=== PATIENT | male | born 1975 | race Caucasian/White ===

== ENCOUNTER 2017-11-08 10:27 | Emergency (ER) | payer OTHER ==
[2017-11-08] MEDS ORDERED: Sodium Chloride 0.9% 10 ML Syringe FLUSH PRN (10:48)
--- NOTE | 2017-11-08 10:55 | EDM.PDOC ---
ED HPI GENERAL MEDICAL PROBLEM - General Chief Complaint: Chest Pain Stated Complaint: SOB/CHEST PAIN Time Seen by Provider: 11/08/17 10:37 Source of Information: Reports: Patient History Limitations: Reports: No Limitations - History of Present Illness INITIAL COMMENTS - FREE TEXT/NARRATIVE: The patient presents with chest pain. This started about 3 days ago. He also has some shortness of breath. This has been an ongoing problem for over 10 years. He says he is winded with working or exertion. He also has come ringing in his ears. He also has some blurred vision at times that comes and goes. He smokes heavy. He has no history of heart disease, hypercholesterolemia, or hypertension. He has been having some diarrhea and abdominal issues for weeks. The past few days that has gotten better. He has no fever, chills or cough. He also had headaches at times. Onset: Gradual Duration: Day(s): (3) Location: Reports: Chest Quality: Reports: Sharp Severity: Moderate Improves with: Reports: None Worsens with: Reports: None Associated Symptoms: Reports: Chest Pain, Headaches, Shortness of Breath. Denies: Cough, Fever/Chills, Nausea/Vomiting Chest Pain Score (Numeric/FACES): 6 - Related Data Allergies Allergy/AdvReac Type Severity Reaction Status Date / Time No Known Allergies Allergy Verified 11/08/17 10:37 Home Meds: Home Meds Colchicine 0.6 mg PO DAILY #10 capsule 11/08/17 [Rx] Naproxen [Naprosyn] 500 mg PO Q12HR #20 tab 11/08/17 [Rx] buPROPion [Wellbutrin] 75 mg PO BEDTIME #30 tab 11/08/17 [Rx] Past Medical History - Past Health History Medical/Surgical History: Denies Medical/Surgical History Social & Family History - Family History Family Medical History: Noncontributory - Tobacco Use Smoking Status *Q: Current Every Day Smoker Years of Tobacco use: 30 Packs/Tins Daily: 1.5 - Caffeine Use Caffeine Use: Reports: Coffee, Energy Drinks, Soda - Recreational Drug Use Recreational Drug Use: Yes Drug Use in Last 12 Months: Yes Recreational Drug Type: Reports: Marijuana/Hashish ED ROS GENERAL - Review of Systems Review Of Systems: See Below Constitutional: Reports: No Symptoms HEENT: Reports: No Symptoms Respiratory: Reports: Shortness of Breath Cardiovascular: Reports: Chest Pain Endocrine: Reports: No Symptoms GI/Abdominal: Reports: Abdominal Pain, Diarrhea. Denies: Nausea, Vomiting : Reports: No Symptoms Musculoskeletal: Reports: No Symptoms Neurological: Reports: Headache ED EXAM, GENERAL - Physical Exam Exam: See Below Exam Limited By: No Limitations General Appearance: Alert, No Apparent Distress, Anxious Ears: Normal External Exam Nose: Normal Inspection Head: Atraumatic, Normocephalic Neck: Normal Inspection Respiratory/Chest: No Respiratory Distress, Lungs Clear, Normal Breath Sounds Cardiovascular: Regular Rate, Rhythm, No Edema, No Murmur GI/Abdominal: Soft, Non-Tender, No Organomegaly, No Mass Back Exam: Normal Inspection Extremities: Normal Inspection Neurological: Alert, Oriented, No Motor/Sensory Deficits EKG INTERPRETATION EKG Date: 11/08/17 Time: 10:38 Rhythm: Other (Sinus bradycardia) Rate (Beats/Min): 53 [place]: Normal P-Wave: Present QRS: Normal ST-T: Elevated (Inferior, anterior and lateral leads consistent with pericarditis) QT: Normal Course - Vital Signs Last Recorded V/S: Last Vital Signs Temp 97.1 F 11/08/17 10:31 Pulse 73 11/08/17 10:31 Resp 16 11/08/17 10:31 BP 144/94 H 11/08/17 10:31 Pulse Ox 97 11/08/17 10:31 - Orders/Labs/Meds Orders: Active Orders 24 hr Category Date Time Status Cardiac Monitoring [RC] . DIRECTED Care 11/08/17 10:48 Active EKG Documentation Completion [RC] STAT Care 11/08/17 10:48 Active Oxygen Therapy [RC] PRN Care 11/08/17 10:48 Active Peripheral IV Care [RC] . DIRECTED Care 11/08/17 10:49 Active Chest 2V [CR] Stat Exams 11/08/17 10:49 Taken DRUG SCREEN, URINE [URCHEM] Stat Lab 11/08/17 10:59 Ordered Sodium Chloride 0.9% [Saline Flush] Med 11/08/17 10:48 Active 10 ml FLUSH ASDIRECTED PRN Peripheral IV Insertion Adult [OM.PC] Stat Oth 11/08/17 10:48 Ordered Medication Orders Sodium Chloride (Saline Flush) 10 ml FLUSH ASDIRECTED PRN PRN Reason: Keep Vein Open Last Admin: 11/08/17 11:01 Dose: 10 ml Labs: Laboratory Tests 11/08/17 11/08/17 11/08/17 Range/Units 10:50 10:50 10:59 WBC 9.21 H (4.23-9.07) K/mm3 RBC 4.77 (4.63-6.08) M/mm3 Hgb 14.5 (13.7-17.5) gm/L Hct 41.5 (40.1-51.0) % MCV 87.0 (79.0-92.2) fl MCH 30.4 (25.7-32.2) pg MCHC 34.9 (32.2-35.5) g/dl RDW Std Deviation 39.3 (35.1-43.9) fL Plt Count 251 (163-337) K/mm3 MPV 10.0 (9.4-12.3) fl Neut % (Auto) 45.8 (34.0-67.9) % Lymph % (Auto) 38.1 (21.8-53.1) % [place] % (Auto) 11.8 (5.3-12.2) % Eos % (Auto) 3.3 (0.8-7.0) Baso % (Auto) 0.8 (0.1-1.2) % Neut # (Auto) 4.22 (1.78-5.38) K/mm3 Lymph # (Auto) 3.51 (1.32-3.57) K/mm3 [place] # (Auto) 1.09 H (0.30-0.82) K/mm3 Eos # (Auto) 0.30 (0.04-0.54) K/mm3 Baso # (Auto) 0.07 (0.01-0.08) K/mm3 Sodium 143 (136-145) mEq/L Potassium 3.8 (3.5-5.1) mEq/L Chloride 107 (98-107) mEq/L Carbon Dioxide 22 (21-32) mEq/L Anion Gap 17.8 H (5-15) BUN 14 (7-18) mg/dL Creatinine 0.8 (0.7-1.3) mg/dL Est Cr Clr Drug Dosing 124.74 mL/min Estimated GFR (MDRD) > 60 (>60) mL/min BUN/Creatinine Ratio 17.5 (14-18) Glucose 117 H (74-106) mg/dL Calcium 8.6 (8.5-10.1) mg/dL Total Bilirubin 0.5 (0.2-1.0) mg/dL AST 20 (15-37) U/L ALT 26 (16-63) U/L Alkaline Phosphatase 91 (46-116) U/L Troponin I < 0.017 (0.00-0.056) ng/mL C-Reactive Protein 0.4 (<1.0) mg/dL Total Protein 7.4 (6.4-8.2) g/dl Albumin 4.0 (3.4-5.0) g/dl Globulin 3.4 gm/dL Albumin/Globulin Ratio 1.2 (1-2) Urine Opiates Screen Negative (NEGATIVE) Ur Buprenorphine Scrn Negative (NEGATIVE) Ur Oxycodone Screen Negative (NEGATIVE) Urine Methadone Screen Negative (NEGATIVE) Ur Propoxyphene Screen Negative (NEGATIVE) Ur Barbiturates Screen Negative (NEGATIVE) Ur Tricyclics Screen Negative (NEGATIVE) Ur Phencyclidine Scrn Negative (NEGATIVE) Ur Amphetamine Screen Negative (NEGATIVE) U Methamphetamines Scrn Negative (NEGATIVE) U Benzodiazepines Scrn Negative (NEGATIVE) U Cocaine Metab Screen Negative (NEGATIVE) U Marijuana (THC) Screen Presumptive positive H (NEGATIVE) Meds: Medications Generic Name Dose Route Start Last Admin Trade Name Freq PRN Reason Stop Dose Admin Sodium Chloride 10 ml 11/08/17 10:48 11/08/17 11:01 Saline Flush FLUSH 10 ml ASDIRECTED PRN Administration Keep Vein Open - Re-Assessments/Exams Free Text/Narrative Re-Assessment/Exam: 11/08/17 10:58 I ordered an IV saline lock, EKG, CXR and labs. The patient took aspirin this morning. 11/08/17 11:56 His EKG shows a sinus bradycardia with global ST elevation consistent with pericarditis. His CXR shows some early signs of emphysema with flattened diaphragms. His WBC was slightly elevated at 9.21. His CMP looks good. His troponin and CRP are negative. He has pericarditis. I will get him on some motrin and cholcicine. He also wants some help stopping smoking so I will get him on some wellbutrin. Departure - Departure Time of Disposition: 12:00 Disposition: Home, Self-Care 01 Condition: Good Clinical Impression: Shortness of breath Pericarditis Qualifiers: Pericarditis type: unspecified type Chronicity: acute Qualified Code(s): I30.9 - Acute pericarditis, unspecified Prescriptions: Naproxen [Naprosyn] 500 mg PO Q12HR #20 tab buPROPion [Wellbutrin] 75 mg PO BEDTIME #30 tab Colchicine 0.6 mg PO DAILY #10 capsule Referrals: PCP,Loren [Primary Care Provider] - Larissa Aponte PA [Physician Filter Cleaner] - 1 Week Forms: ED Department Discharge Additional Instructions: Take the naprosyn 500mg 2 times per day for 10 days. Take colchicine 1 pill daily. Take wellbutrin at night to help stop smoking. Follow up with Larissa Aponte in 1 week. Please return if you are worse. - My Orders Last 24 Hours: My Active Orders 11/08/17 10:48 Cardiac Monitoring [RC] . DIRECTED EKG Documentation Completion [RC] STAT Oxygen Therapy [RC] PRN Sodium Chloride 0.9% [Saline Flush] 10 ml FLUSH ASDIRECTED PRN Peripheral IV Insertion Adult [OM.PC] Stat 11/08/17 10:49 Peripheral IV Care [RC] . DIRECTED Chest 2V [CR] Stat 11/08/17 10:59 DRUG SCREEN, URINE [URCHEM] Stat - Assessment/Plan Last 24 Hours: My Active Orders 11/08/17 10:48 Cardiac Monitoring [RC] . DIRECTED EKG Documentation Completion [RC] STAT Oxygen Therapy [RC] PRN Sodium Chloride 0.9% [Saline Flush] 10 ml FLUSH ASDIRECTED PRN Peripheral IV Insertion Adult [OM.PC] Stat 11/08/17 10:49 Peripheral IV Care [RC] . DIRECTED Chest 2V [CR] Stat 11/08/17 10:59 DRUG SCREEN, URINE [URCHEM] Stat
--- NOTE | 2017-11-09 11:58 | CR ---
Chest: Two views of the chest was obtained. Comparison: No prior chest x-ray. Heart size and mediastinum are normal. Lungs are clear but slightly hyperinflated. Bony structures are unremarkable for the patient's age. Impression: 1. Slightly hyperinflated lungs on the lateral view raising the possibility of emphysematous change. Please correlate if patient is a smoker or has asthma. 2. Nothing acute is otherwise seen on two-view chest x-ray. Diagnostic code #2
== END 2017-11-08 12:35 | disposition home or self-care (01) ==
LOC: JD.ED 10:27
DX: R06.02 Shortness of breath (principal); F17.210 Nicotine dependence, cigarettes, uncomplicated
CPT/HCPCS: 36415; 71046; 80053; 80306; 84484; 85025; 86140; 93005; 99285; J7050; 93010; 99284-25